=== PATIENT | female | born 1950 | race Caucasian/White ===

== ENCOUNTER 2017-02-13 10:16 | Day surgery (SDC) | payer OTHER ==
--- NOTE | 2017-02-12 13:38 | HISTORY AND PHYSICAL ---
ADMITTED: 02/13/2017 HISTORY OF PRESENT ILLNESS: The patient is a pleasant 66-year-old female who presents with a chief complaint of painful left great toe and left great first metatarsophalangeal joint. She also describes pain over her second toe, right foot. The patient reports she has had multiple surgeries carried out on her right foot due to a crush injury she sustained in the . She had surgical procedures carried out by foot and ankle orthopedist, Dr. Estrella and Bal. He says the right toe finally fused and is asymptomatic. As a result, the second toe has been symptomatic and painful and is kind of deviated laterally. States the left foot, she has a painful bunion there. She has pain in the left great toe. MEDICAL/SURGICAL HISTORY: Past medical history includes a history of asthma. PRIMARY CARE PROVIDER: Dr. Parnell. MEDICATIONS: 1. Crestor 25 mg 1 by mouth daily. 2. Daily Motrin as needed. 3. Baby aspirin daily. ALLERGIES: 1. REPORTS NO KNOWN DRUG OR FOOD ALLERGIES. SOCIAL HISTORY: to Dr. Juan Mustafa. Does not smoke, drinks socially and rides her horse. Surgical history of hysterectomy and the aforementioned several orthopedic foot surgeries. FAMILY HISTORY: Noncontributory to chief complaint. REVIEW OF SYSTEMS: Ten-point review of systems noncontributory to chief complaint. PHYSICAL EXAMINATION: GENERAL: The patient is alert, oriented x3. HEENT: PERRLA. Normocephalic. HEART: Regular rate and rhythm. Regular S1 and S2. LUNGS: Respirations clear to auscultation. No wheezes, rhonchi, or rales. ABDOMEN: Soft, tender, nondistended. No palpable masses. Normal tones. LOWER EXTREMITY: Vascular: DP and PT pulses are palpable at +2/4 bilaterally and equally symmetrical. Subpapillary venous plexus capillary refill within normal limits and bilaterally equally symmetrical. NEUROLOGIC: Deep tendon reflexes, epicritic sensations are intact and symmetrical. Orthopedically, there is crepitus and contracture of the second toe of the right foot in the sagittal and transverse plane. It is contract at the proximal and distal interphalangeal joint. The left foot presents with a significant hallux valgus deformity with decreased range of motion at the left first MTP, pain with palpation noted on the distal medial aspect of the left great toe. There is also noted hypermobility at the first TMT left. Stance reveals a collapse of the medial column and valgus rotation of both heels. LAB/IMAGING: There is a prominent distal medial condyle of the left great toe. There is increased intermetatarsal angle between the hallux and the second metatarsal. The second digit shows contracture at the proximal and distal interphalangeal joint, second toe. IMPRESSION: 1. Hallux valgus deformity, left foot. 2. Exostosis, left great toe. 3. Hammertoe deformity with posttraumatic arthritis, second toe, right foot. PLAN: Discussed treatment options. The patient has exhausted conservative care. She would like to proceed with surgical intervention consisting of: Partial amputation of the proximal interphalangeal joint, second toe, right. Lapidus bunionectomy with plantar fixation left and an exostectomy of the left great toe. She is well aware of the planned procedure. Surgery is scheduled on an outpatient basis at [place] on .
[~2017-02-13] VITALS: Ht 162.6 cm; Wt 58.5 kg
[~2017-02-13 10:16] MED LIST: ALBUTEROL HFA60 DOSE IN; CRESTOR20 MG PO; FISH OIL1000 M1 PO; NEURONTIN600 MG PO; VITAMIN C500 M1 PO; VITAMIN D-31000 UNIT PO
--- NOTE | 2017-02-13 10:46 | NUR ---
PRE OP INSTRUCTIONS GIVEN AND SAFTY ISSUES DISCUSSED PT HAD QUESTIONS ANSWERED PT CONFIRMED PROCEDURE PT VERIFIED SIGNATURE PT MARKED SITE
--- NOTE | 2017-02-13 11:08 | NUR ---
PT NOTIFIED OF DELAY IN SURGERY
--- NOTE | 2017-02-13 17:52 | Provider's Discharge Care Plan ---
Problem, Goal, Plan Problem List 1. Acquired hallux valgus of left foot Goals: Improve function Instructions: Follow up as directed
--- NOTE | 2017-02-13 17:52 | Provider's Discharge Care Plan ---
Problem, Goal, Plan Problem List 1. Acquired hallux valgus of left foot Goals: Improve function Instructions: Follow up as directed
--- NOTE | 2017-02-13 18:10 | NUR ---
PATIENT ARRIVED TO PACU AT 1756. SPONT RESP. AROUSABLE. VITALS STABLE. BANDAGES TO BILATERAL FEET CLEAN, DRY AND INTACT. BLE ELEVATED WITH ICE BEHIND BOTH KNEES. PATIENT VERBALIZES 5/10 FOOT PAIN. RN ADMINISTERED FENTENYL PER ORDERS. WILL CONTINUE TO MONITOR.
--- NOTE | 2017-02-13 18:15 | DIAGNOSTIC IMAGING REPORT ---
PROCEDURE: XR FOOT 3 VIEWS - LEFT INDICATION: Postop left foot surgery. TECHNIQUE: Three views. COMPARISON: None. FINDINGS: Postoperative changes including vertical osteotomy of the first metatarsal head (bunionectomy), and fusion of the left first metatarsal/medial/ middle cuneiform joint (side plate and multiple screws. Small amount of subcutaneous emphysema. The rest the osseous structures and joint spaces are normal. IMPRESSION: 1. Status post vertical osteotomy of the left first metatarsal head (bunionectomy). 2. Status post fusion of the left first metatarsal/medial/middle cuneiform joint (metal hardware).
--- NOTE | 2017-02-13 18:33 | NUR ---
PATIENT'S VITALS REMAIN STABLE. PATIENT REPORTS PAIN LEVEL 4/10 AND STATES IT IS "COMFORTABLE". DRESSINGS REMAIN C,D,I. WILL CONTINUE TO MONITOR.
[2017-02-13 19:00] VITALS: BP 112/80
--- NOTE | 2017-02-13 19:04 | NUR ---
PT ARRIVED TO AC UNIT AROUND 1850 VIA GURNEY FROM PACU. VSS. PAIN IS A 2/10, NO C/O NAUSEA. BOTH FEET HAS CAP REFILL <3 SECONDS. FULL SENSATION IN BOTH FEET. ELEVATED W/ ICE BAG UNDER KNEES. AT BEDSIDE. RESTING W/ CALL LIGHT IN REACH.
[2017-02-13 19:15] VITALS: BP 129/81
[2017-02-13 19:30] VITALS: BP 134/77
[2017-02-13 19:52] VITALS: BP 133/80
--- NOTE | 2017-02-13 20:26 | NUR ---
VSS, AFEBRILE AND NO NAUSEA. PAIN WAS 3/10, GAVE PAIN MED. PT AMBULATED TO W/ 1PERSON ASSIST. VOIDED CLEAR YELLOW URINE. BOTH BOOTS PLACED ON PT. DISCUSSED DC ORDERS AND EDUCATION. PT LEFT AT 2024 VIA WC W/ PEDIATRIC ASSOCIATE AND AT HER SIDE.
--- NOTE | 2017-02-13 21:18 | OPERATIVE REPORT ---
DATE OF SURGERY: 02/13/2017 SURGEON: Gino Manuel DPM PREOPERATIVE DIAGNOSES: 1. Hallux valgus deformity, left foot 2. Exostectomy, left great toe 3. Posttraumatic arthritis second digit, right foot POSTOPERATIVE DIAGNOSES: 1. Hallux valgus deformity, left foot 2. Exostectomy, left great toe 3. Posttraumatic arthritis second digit, right foot PROCEDURE PERFORMED: 1. Lapidus bunionectomy with plantar fixation, left foot 2. Exostectomy, left great toe 3. Partial amputation at the proximal interphalangeal joint second digit, right HEMOSTASIS: Achieved by pneumatic ankle tourniquet inflated to 200 mmHg pressure. TOURNIQUET TIME: On the left foot, total tourniquet time 112 minutes. MATERIALS: 3-0 and 4-0 Polysorb, 4-0 Biosyn and one Arthrex plantar plate screw, one 4.0 headless compression screw 32 mm in length, four 3.5 locking and compression screws and one 36 mm fully threaded 4.0 cancellous screw. INJECTABLES: Injected 20 mL of 0.5% bupivacaine plain. COMPLICATIONS: None. CONDITION: The patient tolerated anesthesia, procedure well. INDICATIONS: The patient is a 66-year-old female who presents with painful right second toe secondarily to a crush injury several years ago. It has been malformed and there is posttraumatic arthritis at the MTP joint, as well as the second toe is contracted in multiple planes, it is painful, she would like to have it partially amputated at the proximal interphalangeal joint. Left foot presents with a very prominent bunion, which is painful. She also states she has got this spur on her left great toe that she would like addressed as well. There are no contraindications to surgery at this time. SURGICAL TECHNIQUE: The patient was brought in to the operating room, placed on operating table in a supine position. General anesthetic was administered. A pneumatic tourniquet was then placed above the left ankle. Bilateral lower extremities were then prepped and draped in the normal sterile fashion. Intraoperative pause carried out for positive identification, proper limb, consent form verified and confirmed. An Esmarch bandage was then utilized to exsanguinate the limb, tourniquet was then inflated. Attention was then directed to procedure #1. Lapidus bunionectomy, left foot: At this time, a linear incision was made extending from the distal metatarsophalangeal joint extending proximally, kind of medially across the tarsometatarsal. Meticulous dissection was carried out distally at the first metatarsophalangeal joint, where a complete lateral release was carried out, as well as identification. The extensor hallucis brevis tendon was identified and released. One pericapsular incision was made medially. The collateral ligament was released. The hypertrophied medial eminence of bone was resected. Dissection was carried back proximally to the tarsometatarsal joint. It was freed of all soft tissue and attachments. A joint distractor was then utilized. The articulating surface of the first medial cuneiform and the base of first metatarsal were denuded with a curette and then fish scaled with an osteotome. It was then drilled with 2-0 drill to fenestrate both surfaces to pass the subchondral plate to bleeding bone. The area was copiously lavaged and flushed. The lateral condyle of the base of the first metatarsal was resected from dorsal to plantar. A large bone clamp was then used to translate the first metatarsal, both in the transverse sagittal plane. It was set at 0 degree IM angle. Using standard AO techniques, one 4.0, 32 mm compression screw was then driven from slightly dorsal distal laterally to proximal plantar medially, stabilizing and fixating the joint. Utilizing AO techniques, the Lapidus plantar plate was fixated in standard fashion and there was good reduction of the IM angle with solid fixation noted. The area was copiously lavaged and flushed. Capsule and periosteum were reapproximated with 3-0 Polysorb, subcutaneous with 4-0 and skin edges were closed in a running subcuticular fashion with 4-0 Biosyn. Attention was then directed to procedure #2. Exostectomy, left great toe: A linear incision was made overlying the first of the IP joint medially, verified under fluoroscopy for proper placement. Dissection was carried down to bone and [place] elevator was used to resect the periosteum and a reciprocating rasp was then utilized to resect the hypertrophied bone in toto. The area was flushed. Subcutaneous reapproximated with 4-0 Polysorb, and skin edges were reapproximated in running fashion with 4-0 Surgipro. The area was then locally anesthetized. A compressive dressing was applied. Tourniquet was released with good digital perfusion noted. Attention was then directed to procedure #3. Partial amputation, second digit, right foot: At this time, [place] drain was then utilized at the base of the second toe where a fish mouth incision was made at the proximal interphalangeal joint. The distal aspect was then disarticulated and removed. Head of the proximal phalanx was excised via sagittal saw, contoured to a smooth edge, area was flushed. The subcutaneous tissue was reapproximated with 4-0 Polysorb and skin edge reapproximated with 4-0 Surgipro. The toe was also anesthetized approximately 5 mL of 0.5% Marcaine plain. Adrienne was released. Good perfusion noted. A compressive dressing was applied. The patient tolerated all procedures without complications , left the operating room with vital signs stable. While in recovery, postoperative x- rays ordered and reviewed for excellent reduction of the IM angle solid fixation noted. There were no complications. The patient will be followed back in our office in 3-5 days. She is ambulating with utilization of a fracture boot on the left and a postoperative shoe on the right.
== END 2017-02-13 20:25 | disposition home or self-care (01) ==
LOC: OR SRH 10:16 → SCU SRH 10:17 → OR SRH 10:30 → ACUTE2 SRH 18:56 → OR SRH 20:25
PROVIDERS: Podiatrist
PROC: 0QBR0ZZ Excision of Left Toe Phalanx, Open Approach (ICD-10-PCS; principal; 2017-02-13 10:30)
PROC: 0Y6R0Z3 Detachment at Right 2nd Toe, Low, Open Approach (ICD-10-PCS; principal; 2017-02-13 10:30)
PROC: 0SGL0ZZ (ICD-10-PCS; principal; 2017-02-13 10:30)
DX: M20.12 Hallux valgus (acquired), left foot (principal); M19.171 Post-traumatic osteoarthritis, right ankle and foot; M89.372 Hypertrophy of bone, left ankle and foot

== ENCOUNTER → 2017-02-21 | Outpatient (CLI) | payer OTHER ==
--- NOTE | 2017-02-21 14:52 | DIAGNOSTIC IMAGING REPORT ---
PROCEDURE: MR LUMBAR SPINE W/O CONTRAST INDICATION: CHRONIC LOW BACK PAIN WITH LEFT RADICULOPATHY TECHNIQUE: T1, T2, and STIR sagittal sequences. T2 and T1 axial sequences. COMPARISON: 07/05/2007 FINDINGS: Alignment and curvature: Normal. Vertebral bodies: Normal vertebral body height and marrow signal. Mild anterior endplate spurring in the visible lower thoracic spine. Disc spaces: Mild disc height loss L3-4 and moderate disc height loss L4-5 and L5-S1, slightly progressed at L4-5 compared to the prior study, stable at the other levels. Spinal canal: The distal cord is normal and the conus terminates at the L2 level. Paraspinal soft tissues: No suspicious mass. L1-2: Normal. L2-3: Normal disc. Mild facet arthropathy. L3-4: Mild diffuse circumferential disc bulge. Mild facet hypertrophy. Mild to moderate bilateral foraminal narrowing, no significant progression. L4-5: Moderate diffuse circumferential disc bulge, now encroaching on the right L5 lateral recess nerve root. Mild facet arthropathy. Minor bilateral foraminal narrowing. Mild central canal narrowing to a similar degree. L5-S1: Moderate broad-based posterior disc bulge, similar in extent compared to the previous study. Mild to moderate facet arthropathy. Mild to moderate bilateral foraminal narrowing, left worse than right. Slight encroachment of disc material on the left lateral recess S1 nerve root. No significant progression compared to prior. There is a new 4 mm synovial cyst arising from the left facet joint extending into the posterior superior aspect of the left neural foramen which may be further encroaching on the left L5 nerve root. IMPRESSION: 1. Mild progression of disc height loss at L4-5 with a diffuse disc bulge now slightly encroaching on the right L5 lateral recess nerve root, potentially causing right L5 radiculopathy. Correlate clinically. 2. Chronic broad-based disc bulge at L5-S1 with stable narrowing of the neural foramen and left lateral recess. 3. New left L5-S1 4 mm synovial cyst arising from the facet joint and further narrowing the left neural foramen, potentially effecting the left L5 nerve root.
== END ==
LOC: MRI SRH 09:36
DX: M51.26 Other intervertebral disc displacement, lumbar region (principal); M51.27 Other intervertebral disc displacement, lumbosacral region; M71.38 Other bursal cyst, other site